=== PATIENT | male | born 1940 | race Caucasian/White ===

== ENCOUNTER 2018-04-30 20:41 | Observation (INO) | payer MEDICARE, OTHER ==
[~2018-04-30] VITALS: Ht 175.3 cm; Wt 110.7 kg
--- NOTE | ~2018-04-30 | CON ---
[address] [address] CONSULTATION Name: MIGUELITO DAI Room: [address] Teddy Hairston#: [id number] Admission: 04/30/18 Attend Phys: Christopher Tinajero MD Discharge: 05/01/18 Date of : 38 Report #: [id number] THIS REPORT FOR: //name// CC: MICHAEL Tinajero DICTATED BY: Lisset Lovell [facility] DATE OF SERVICE: 05/01/2018 Please note at the time of this dictation, the patient was seen and physically examined by myself. REASON FOR CONSULTATION: Constipation issues prior to discharge. HISTORY OF PRESENT ILLNESS: This pleasant 77-year-old male who presented to the Emergency Room with having some left upper quadrant, left anterior chest pressure that radiated in his upper extremities. Cardiology has seen him and his troponins have been negative. He has no cardiac history; however, he is going down for a stress test today and if that is negative, he will likely go home. The patient has seen Dr. Alcazar in the past, last time he saw him was in 2013. He underwent a colonoscopy that just showed diverticular disease. He does state the one prior to his last colon did show that he did have a polyp. The patient states that Dr. Alcazar had told him to take MiraLax daily. Even with him taking MiraLax daily he states he would go 2-3 days without going and then he would have a blowout day. Recently, he has been under a lot of stress. He quit taking his MiraLax regularly in September because he recently placed his into an extended care facility related to her dementia. Since he has done that he has been doing enemas about every couple of days, which give him some relief, but not full evacuation of his bowels. He denies any upper GI symptoms at this time. ALLERGIES: No known drug allergies. MEDICATIONS FROM HOME: Metformin, vitamin D, Zestril, Lantus, Proscar, Trulicity, Lipitor, l-thyroxine, Norvasc, Flomax, aspirin, and eye drops. PAST MEDICAL HISTORY: Hypertension, arthritis, glaucoma, enlarged prostate, history of kidney stones, diverticular disease, diabetes. 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 FAMILY HISTORY: Significant [place] [address] CONSULTATION Name: MIGUELITO DAI Room: [address] Teddy Hairston#: [id number] Admission: 04/30/18 Attend Phys: Christopher Tinajero MD Discharge: 05/01/18 Date of : 38 Report #: [id number] SOCIAL HISTORY: Currently lives alone. is in an extended care facility due to dementia. Denies any other alcohol, tobacco or illegal drug use. REVIEW OF SYSTEMS: Twelve-point review of systems is essentially negative except what is mentioned in the HPI. PHYSICAL EXAMINATION: VITAL SIGNS: Temperature 36.9, pulse 71, respirations 16, blood pressure 130/67. HEART: Regular rate and rhythm. LUNGS: Clear. ABDOMEN: Soft. Positive bowel sounds in all 4 quadrants with some left mid to left lower quadrant tenderness noted to palpation. LABORATORY DATA: Hemoglobin 15.6, white count is 6, platelets 169. GFR is 59. He is pending stress test and going home. IMPRESSION: 1. Abdominal pain. 2. Chest pain. 3. Chronic constipation. 4. Family history of colon cancer. PLAN: 1. The patient is instructed that once he gets home to do a bottle of magnesium citrate to get himself to go. 2. He can get some magnesium oxide tablets over the counter and take 1-2 once or twice a day to see if this will help facilitate better bowel movements. 3. The patient is to increase his oral intake of fluids, which in talking with the patient, he does not have adequate fluid intake. 4. An office visit in 2 weeks to discuss how his bowels are performing and whether or not a colonoscopy would be warranted. Thank you for allowing us to participate in this patient's care. Please do not hesitate to call with any questions in regard to this consult. By: [id number] A Gray DO /ronald
[~2018-04-30 20:41] MED LIST: ALLOPURINOL 10100 M1; ASPIR 8181 MG PO; CEFDINIR PO; D3 DOTS2000 UNIT PO; FINASTERIDE5 MG PO; FLOMAX0.4 MG PO; FOSAMAX 70 MG T70 M1; HYDROCODONE-AP1 EAC6 PO; L-Thyroxine PO; LIPITOR10 MG PO; LISINOPRIL5 MG; MAGOX 400400 MG PO; METFORMIN HCL1000 M1 PO; NORVASC10 MG; NORVASC10 MG PO; TAMSULOSIN HCL0.4 MG; TRAVATAN Z2.5 ML OPHTHALMIC; TRULICITY1.5 MG/0.5 SQ
[2018-04-30 20:48] VITALS: BP 170/89
[2018-04-30] MEDS ORDERED: LISINOPRIL5 MG PO (20:57)
[2018-04-30] MEDS ORDERED: ALLOPURINOL 10100 M1 PO (20:57)
[2018-04-30] MEDS ORDERED: PROSCAR 5MG TABL5 MG PO (20:58)
[2018-04-30] MEDS ORDERED: LANTUS100 UNIT/M SUBQ (20:58)
[2018-04-30 21:53] LABS: ABSOLUTE EOSINOPHILS 0.2 thou/uL (0.0-0.7); ABSOLUTE LYMPHOCYTES 1.3 thou/uL (0.8-5.3); ABSOLUTE MONOCYTES 0.5 thou/uL (0.0-1.2); ABSOLUTE NEUTROPHILS 3.9 thou/uL (1.6-8.1); BASOPHILS 0.7 %; HEMATOCRIT 46.4 % (42.0-52.0); HEMOGLOBIN 15.6 gm/dL (14.0-18.0); LYMPHOCYTES 22.1 %; MCH 30.7 pg (26.0-34.0); MCHC 33.6 g/dL (28.0-37.0); MCV 91.2 fL (80.0-100.0); MONOCYTES 8.9 %; MPV 9.4 fl. (7.2-11.1); NUCLEATED RBCS 0 /100WBC; PLATELET COUNT* 169 thou/uL (150-400); POLYS 64.3 %; RBC 5.09 mil/uL (4.50-6.00); RDW-CV 14.2 % (10.5-14.5)
[2018-04-30 22:03] LABS: PROTIME 10.5 Seconds (9.20-11.50)
[2018-04-30 22:08] LABS: ANION GAP 10 mmol/L (7-16); BUN 20 mg/dL (7-18); CALCIUM 9.1 mg/dL (8.5-10.1); CHLORIDE 103 mmol/L (98-107); CO2 28 mmol/L (21-32); CREATININE 1.2 mg/dL (0.6-1.3); GLUCOSE 138 mg/dL (70-99); POTASSIUM 3.8 mmol/L (3.5-5.1); SODIUM 141 mmol/L (136-145); TROPONIN-I LEVEL <0.06 ng/mL (<0.06)
[2018-04-30 22:10] LABS: ALKALINE PHOSPHATASE 79 U/L (46-116); LIPASE 262 U/L (73-393); NT-PRO BRAIN NAT PEPTIDE 100 pg/mL (<300); SGOT 24 U/L (15-37); SGPT 28 U/L (30-65); TOTAL BILIRUBIN 0.4 mg/dL (<0.1-1.0); TOTAL PROTEIN 7.2 g/dL (6.4-8.2)
[2018-04-30 23:48] VITALS: BP 132/76
[2018-05-01] VITALS (8 sets, daily range): BP systolic 119–133; BP diastolic 67–79
[2018-05-01] MEDS ORDERED: CITRATE OF MAG296 M1 PO (11:41)
[2018-05-01] MEDS ORDERED: MAG-OXIDE400 MG PO (11:41)
--- NOTE | 2018-05-01 13:20 | EKG ---
[place] [address] ELECTROCARDIOGRAM REPORT Name: MIGUELITO DAI Room: [address]R.#: [id number] Admission: 04/30/18 Attend Phys: Christopher Tinajero MD Discharge: Date of : 38 Report #: [id number] THIS REPORT FOR: //name// [facility] ED Test Date: 2018-04-30 Test Time: 20:46:05 Pat Name: MIGUELITO HUNTERDWICK Department: Room: [facility] Gender: M Research Animal Attendant: : 1940 Requested By: Toshia Amato Order Number: [id number] MD: Kirit Umaña Measurements Intervals [place] Rate: 87 P: 72 [place]: 167 QRS: -47 QRSD: 94 T: 20 QT: 370 QTc: 445 Interpretive Statements Sinus rhythm Left anterior fascicular block No previous ECG available for comparison Electronically Signed On 05-01-2018 13:19:58 [employer] by Kirit Umaña [email or web address] <ELECTRONICALLY SIGNED> By: Kirit Umaña MD, [facility] 05/01/18 1319 45 45 Kirit Umaña MD, [facility] /EPI
--- NOTE | 2018-05-01 13:20 | EKG ---
[place] [address] ELECTROCARDIOGRAM REPORT Name: MIGUELITO DAI Room: [address] M.R.#: [id number] Admission: 04/30/18 Attend Phys: Christopher Tinajero MD Discharge: Date of : 38 Report #: [id number] THIS REPORT FOR: //name// [facility] ED Test Date: 2018-04-30 Test Time: 22:37:06 Pat Name: MIGUELITO SUHAS Department: Room: [facility] Gender: M Catering Service Manager: Donato CRAWFORD : 1940 Requested By: Toshia Amato Order Number: [id number] MD: Kirit Umaña Measurements Intervals [place] Rate: 77 P: 53 [place]: 172 QRS: -46 QRSD: 89 T: -14 QT: 397 QTc: 450 Interpretive Statements Sinus rhythm Left anterior fascicular block Abnormal R-wave progression, late transition Left ventricular hypertrophy Borderline T abnormalities, inferior leads No previous ECG available for comparison Electronically Signed On 05-01-2018 13:20:14 [employer]OL[employer] by Kirit Umaña [email or web address] <ELECTRONICALLY SIGNED> By: Kirit Umaña MD, [facility] 05/01/18 1320 2237 36 Kirit Umaña MD, [facility] /EPI
--- NOTE | 2018-05-01 13:21 | EKG ---
[place] [address] ELECTROCARDIOGRAM REPORT Name: MIGUELITO DAI Room: [address] M.R.#: [id number] Admission: 04/30/18 Attend Phys: Christopher Tinajero MD Discharge: Date of : 38 Report #: [id number] THIS REPORT FOR: //name// [facility] Test Date: 2018-05-01 Test Time: 04:10:08 Pat Name: MIGUELITO HUNTERDWICK Department: Room: [address] Gender: M Computer Specialist: : 1940 Requested By: Toshia Amato Order Number: [id number] Reading MD: Kirit Umaña Measurements Intervals [place] Rate: 71 P: 74 [place]: 199 QRS: -40 QRSD: 97 T: -9 QT: 388 QTc: 422 Interpretive Statements Sinus rhythm Left anterior fascicular block Borderline T abnormalities, inferior leads Baseline wander in lead(s) V3 No previous ECG available for comparison Electronically Signed On 05-01-2018 13:21:39 CERAMICS TEACHER by Kirit Umaña [email or web address] <ELECTRONICALLY SIGNED> By: Kirit Umaña MD, [facility] 05/01/18 1321 0410 0410 Kirti Umaña MD, [facility] /EPI
--- NOTE | 2018-05-01 15:18 | CARDNUC ---
[place] [address] CARDIAC NUCLEAR IMAGING REPORT Name: SUHASELIZABETHIvan Singh Room: [address] Marika#: [id number] Admission: 04/30/18 Attend Phys: Christopher Tinajero, Discharge: Date of : 38 Date of Service: 05/01/18 1518 Report #: [id number] THIS REPORT FOR: //name// APPROVED REPORT Imaging Protocol: Stress Tc-99m/ 1 day Study performed: 05/01/2018 08:37:00 Indication: Chest pain Patient Location: In-Patient Room #: 208 Stress Tech: Lyndsey Ross Stress Nurse: Raven Kaiser RN NM Tech:HARSHAD Ritchie Ht: 5 ft 9 in Wt: 244 lbs BSA: 2.25 m2 BMI: 36.02 Medical History Medical History: hyperlipidemia, hypertension, diabetes Medications: lisinopril, atorvastatin, asa-81, amlodipine, ntg Allergies: nkda Cardiac Risk Factors: age, hyperlipidemia, hypertension, diabetes Exercise History: Indeterminate Pharmacologic Stress Pharmacologic stress test was performed by injecting Regadenoson 0.4 mg IV push over 10-15 seconds immediately followed by the intravenous injection of 37.7 mCi of Tc-99m Sestamibi. Time of stress injection: 1155 Administration Route: IV Administration Site: Right Arm The images were gated to evaluate regional wall motion and calculate left ventricular ejection fraction. Stress only was performed in the Supine position. Stress Test Details Stress Test: Pharmacologic stress testing performed using 0.4 mg of regadenoson per 5 mL given IV over 10 seconds. Reason for pharmacologic stress test: physical limitation. HR Max Heart Rate (APMHR): 142 bpm Resting HR: 78 bpm Target HR (85% APMHR): 120 [place] [address] CARDIAC NUCLEAR IMAGING REPORT Name: MIGUELITO DAI Room: [address]#: [id number] Admission: 04/30/18 Attend Phys: Christopher Tinajero, Discharge: Date of : 38 Date of Service: 05/01/18 1518 Report #: [id number] Max HR Achieved: 103 bpm % of APMHR: 72 Recovery HR: 93 bpm HR response to stress: Normal HR response to stress BP Resting BP: 140/63 mmHg Max BP: 132/54 mmHg Recovery BP: 130/70 mmHg BP response to stress: Normal blood pressure response to stress. ECG Resting ECG: Sinus Rhythm Stress ECG: Sinus Rhythm ST Change: None Recovery ECG: Sinus Rhythm Recovery ST Change: None Clinical Reason for Termination: Completed protocol Stress Symptoms: None Exercise duration: 0 min sec Exercise capacity: 1 METs Nurse Comments pt gait unsteady, walks with cane. unableto walk on treadmill Stress ECG Conclusion negative ECG Study Quality Study: Good Artifact: No artifact Perfusion Stress only SPECT images are normal in supine and prone positions, without any perfusion defects. Images were reviewed using [employer]. Wall Motion normall all segments Nuclear Conclusion ECG Findings: negative for ischemia Clinical Findings: [place] [address] CARDIAC NUCLEAR IMAGING REPORT Name: MIGUELITO DAI Room: [address]#: [id number] Admission: 04/30/18 Attend Phys: Christopher Tinajero, Discharge: Date of : 38 Date of Service: 05/01/181517 Report #: [id number] Nuclear Findings: negative for ischemia Exercise Capacity: not assessed Left Ventricular Function: normal Risk Study: low Negative stress only pharmacologic perfusion stress test for ischemia or infarct <Conclusion> negative ECG <ELECTRONICALLY SIGNED> By: Kirit Umaña MD, [facility] 05/01/181517 17 17 Kirit Umaña MD, [facility] /INF
[2018-05-01 15:41] LABS: CHOLESTEROL 99 mg/dL (<200); HDL CHOLESTEROL 40 mg/dL (>40); LDL CHOLESTEROL 49 mg/dL (<100); TC:HDL 2.5 Ratio (Not establshd); TRIGLYCERIDE 52 mg/dL (<150); VLDL 10 mg/dL (<40)
[2018-05-01 15:44] LABS: SERUM ASSESSMENT Clear
== END 2018-05-01 18:08 | disposition home or self-care (01) ==
LOC: M.ERS 20:41 → M.TBA-ER 22:54 → M.2W 23:22
PROVIDERS: Personal Emergency Response Attendant; Registered Nurse; ADMIT Internal Medicine
DX: R07.89 Other chest pain (principal); K59.00 Constipation, unspecified; E11.39 Type 2 diabetes mellitus with other diabetic ophthalmic complication; H42 Glaucoma in diseases classified elsewhere; I10 Essential (primary) hypertension; N20.1 Calculus of ureter; E78.5 Hyperlipidemia, unspecified; M19.90 Unspecified osteoarthritis, unspecified site; Z79.82 Long term (current) use of aspirin; Z79.4 Long term (current) use of insulin; Z79.899 Other long term (current) drug therapy

== ENCOUNTER → 2018-12-04 | Outpatient (CLI) | payer MEDICARE, OTHER ==
[~2018-12-04] MED LIST changes: +ALLOPURINOL 10100 M1 PO; +CITRATE OF MAG296 M1 PO; +LANTUS100 UNIT/M SUBQ; +LISINOPRIL5 MG PO; +MAG-OXIDE400 MG PO; +PROSCAR 5MG TABL5 MG PO
== END ==
LOC: M.CT 07:43
DX: N20.0 Calculus of kidney (principal); E11.9 Type 2 diabetes mellitus without complications; I10 Essential (primary) hypertension; E66.9 Obesity, unspecified; E78.01 Familial hypercholesterolemia

== ENCOUNTER 2020-06-27 10:33 | Emergency (ER) | payer MEDICARE, OTHER ==
[~2020-06-27] VITALS: Ht 175.3 cm; Wt 117.9 kg
[2020-06-27] MEDS ORDERED: NEURONTIN100 MG PO (10:45)
[2020-06-27] MEDS ORDERED: NORCO5 PO (12:51)
[2020-06-27 13:06] VITALS: BP 124/80
== END 2020-06-27 13:37 | disposition home or self-care (01) ==
LOC: M.ERS 10:33
DX: S22.32XA Fracture of one rib, left side, initial encounter for closed fracture (principal); I10 Essential (primary) hypertension; M19.90 Unspecified osteoarthritis, unspecified site; N40.0 Benign prostatic hyperplasia without lower urinary tract symptoms; E11.9 Type 2 diabetes mellitus without complications; Z87.442 Personal history of urinary calculi; W18.39XA Other fall on same level, initial encounter; Y93.89 Activity, other specified; Y92.89 Other specified places as the place of occurrence of the external cause; Y99.8 Other external cause status

== ENCOUNTER 2021-02-16 10:05 | Emergency (ER) | payer MEDICARE, OTHER ==
[~2021-02-16] VITALS: Ht 175.3 cm; Wt 125.7 kg
[~2021-02-16 10:05] MED LIST changes: +NEURONTIN100 MG PO; +NORCO5 PO
[2021-02-16] MEDS ORDERED: DEXAMETHASONE 44 M1 PO (12:12)
[2021-02-16] MEDS ORDERED: ZPAK PO (12:12)
[2021-02-16 12:16] VITALS: BP 134/82
== END 2021-02-16 12:16 | disposition home or self-care (01) ==
LOC: M.ERS 10:05
DX: B34.9 Viral infection, unspecified (principal); Z20.822 Contact with and (suspected) exposure to COVID-19; I10 Essential (primary) hypertension; M19.90 Unspecified osteoarthritis, unspecified site; Z98.890 Other specified postprocedural states; Z79.899 Other long term (current) drug therapy

== ENCOUNTER → 2021-02-27 | Outpatient (CLI) | payer MEDICARE, OTHER ==
[~2021-02-27] MED LIST changes: +DEXAMETHASONE 44 M1 PO; +ZPAK PO
== END ==
LOC: M.RAD 10:57
PROVIDERS: ATTEND Internal Medicine
DX: J15.8 Pneumonia due to other specified bacteria (principal); J45.41 Moderate persistent asthma with (acute) exacerbation; M47.814 Spondylosis without myelopathy or radiculopathy, thoracic region